=== PATIENT | male | born 1985 ===

== ENCOUNTER 2016-10-31 15:58 | Emergency (ER) | payer SELFPAY ==
[2016-10-31 17:04] VITALS: BP 139/82
--- NOTE | 2016-10-31 18:13 | UC ---
UC General HPI - HPI Summary HPI Summary: The patient comes in today for: 1. Swelling of the right leg: Onset: "Just noticed today." Palliative/provocative: Nothing makes the swelling better or worse. Quality: Edema, no pain. "little tingling of the foot--going away." Region: Right ankle Severity: 0/10 Time: Constant. Associated symptoms: No pain in his calf. No injury to the right calf. Previous disease: He has had poison alanna of the right calf for which he did not see anyone. Wells score: -1 * - History of Current Complaint Chief Complaint: UCLowerExtremity Stated Complaint: RIGHT FOOT PAIN Time Seen by Provider: 10/31/16 17:49 Hx Obtained From: Patient - Allergy/Home Medications Allergies/Adverse Reactions: Allergies Allergy/AdvReac Type Severity Reaction Status Date / Time No Known Allergies Allergy Verified 10/31/16 16:56 PMH/Surg Hx/FS Hx/Imm Hx Previously Healthy: Yes - Surgical History Surgical History: None - Family History Known Family History: Positive: Cardiac Disease - heart attacks., Hypertension Negative: Diabetes - Social History Occupation: Employed Full-time Alcohol Use: Occasionally Substance Use Type: None Smoking Status (MU): Never Smoked Tobacco - Immunization History Most Recent Influenza Vaccination: NONE Most Recent Tetanus Shot: UTD Most Recent Pneumonia Vaccination: N/A Review of Systems Constitutional: Negative Skin: Rash Eyes: Negative ENT: Negative Respiratory: Negative Cardiovascular: Negative Gastrointestinal: Negative All Other Systems Reviewed And Are Negative: Yes Physical Exam Triage Information Reviewed: Yes Appearance: Well-Appearing, No Pain Distress, Well-Nourished Vital Signs: Initial Vital Signs Temp 98.6 F 10/31/16 16:56 Pulse 62 10/31/16 16:56 Resp 18 10/31/16 16:56 BP 139/82 10/31/16 16:56 Pulse Ox 98 10/31/16 16:56 Vital Signs Reviewed: Yes Eyes: Positive: Conjunctiva Clear. Negative: Discharge ENT: Positive: Hearing grossly normal. Negative: Pharyngeal erythema, Nasal congestion, Nasal drainage, TM bulging, TM dull, TM red, Tonsillar swelling, Tonsillar exudate Dental: Negative: Gross Decay/Caries @, Dental Fracture @ Neck: Positive: Supple, Nontender, No Lymphadenopathy. Negative: Nuchal Rigidity Respiratory: Positive: Lungs clear, No respiratory distress, No accessory muscle use. Negative: Crackles, Wheezing Cardiovascular: Positive: RRR, No Murmur Abdomen Description: Positive: Nontender, No Organomegaly, Soft. Negative: Distended, Guarding Musculoskeletal: Positive: Strength Intact, ROM Intact, No Edema, Other: - He has tenderness to palpation of the right posterior calf and the right popliteal area (both places have a red rash), but not in the upper right thigh. Neurological: Positive: Alert, Muscle Tone Normal Psychological: Positive: Age Appropriate Behavior, Consolable Skin: Positive: rashes - He has an erythematous, papular, bullous rash behind the right thigh and lower leg. (he states that he got poison alanna and has been self treating with Calamine lotion) Calf circumference at 27 cm up from the lateral malleolus: right : 36 Left: 36 Course/Dx - Course Course Of Treatment: Patient was told that my impression is that the swelling of his lower right leg around the ankle is related to the infection/dermatitis of the back of his right thigh and lower leg. However, I am not able to rule out DVT. Therefore, my recommendation is to go to the ER for an ultrasound. However, the patient did not want to do this. He wants to try antibiotics and close monitoring. - Differential Dx - Multi-Symptom Provider Diagnoses: Lower right leg edema (2nd to cellulitis vs DVT). Cellulitis of the back of the right thigh and lower leg. Discharge - Discharge Plan Condition: Stable Disposition: AGAINST MEDICAL ADVICE Patient Education Materials: Cellulitis (ED), Leg Edema (ED) Referrals: Non Staff,Doctor [Primary Care Provider] - 2 Days (If you are not going to the ER as recommended to rule out DVT and if you want to treat this as a cellulitis with associated lower leg swelling with antibiotics, please see your primary care provider in 2 days to see how well you are doing. If you get worse, please go to the ER.)
== END 2016-10-31 19:00 | disposition left against medical advice (07) ==
LOC: UCCORT 15:58
DX: R60.0 Localized edema (principal); L03.115 Cellulitis of right lower limb
CPT/HCPCS: 99203; G0463